=== PATIENT | female | born 1990 | race Caucasian/White ===

== ENCOUNTER 2020-03-13 10:00 | Inpatient (IN) | payer OTHER ==
[~2020-03-13 10:00] MED LIST: ELECTROLYTE-148 SOLN 1,000 ML IV ONE
[2020-03-13] MEDS ORDERED: CITRIC ACID/SODIUM CITRATE 30 ML UNIT-DOSE CUP PO ONE (11:18)
[2020-03-13 11:30] LABS: BASO % 0.6 % (0-2.0); HEMATOCRIT 33.2 % (32.4-45.2); HEMOGLOBIN 11.2 GM/dL (10.7-15.3); LYMPH % 14.7 % (8-40); MCH 30.9 pg (25.7-33.7); MCHC 33.7 g/dl (32.0-36.0); MEAN CELL VOLUME 91.9 fl (80-96); NEUT % 77.7 % (42.8-82.8); PLATELET COUNT 243 K/MM3 (134-434); RBC 3.61 M/mm3 (3.60-5.2); RDW 13.6 % (11.6-15.6)
[2020-03-13] MEDS ORDERED: ELECTROLYTE-148 SOLN 1,000 ML IV SCH (11:30)
[2020-03-13 11:32] VITALS: BMI 36.6
[2020-03-13 11:37] LABS: INR 0.94 (0.83-1.09); PROTHROMBIN TIME (PATIENT) 11.1 SEC (9.7-13.0)
[2020-03-13 11:40] LABS: ACTIVATED PTT 26.4 SECONDS (25.2-36.5)
[2020-03-13 12:04] LABS: BLOOD UREA NITROGEN 5.8 mg/dL (7-18); CALCIUM 9.1 mg/dL (8.5-10.1); CREATININE 0.5 mg/dL (0.55-1.3); POTASSIUM 3.8 mmol/L (3.5-5.1)
[2020-03-13] MEDS ORDERED: IBUPROFEN 800 MG/8 ML IJ IVPB PRN (13:02)
[2020-03-13] MEDS ORDERED: SENNOSIDES/DOCUSATE COMBO (SENNA PLUS) TABLET (UD) PO PRN (13:02)
[2020-03-13] MEDS ORDERED: IBUPROFEN 600 MG TABLET (FP) PO PRN ×2 (13:02→14:53)
--- NOTE | 2020-03-13 13:02 | HP ---
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: Alzheimer's, CVA, Dementia, Migraine, Multiple Sclerosis, Peripheral Neuropathy, Parkinson's, Seizure, Syncope, TIA, Vertigo, Other Cardiovascular: No: AFIB, Aneurysm, Aortic Insufficiency, Aortic Stenosis, CAD, CHF, Deep Vein Thrombosis, HTN, Hyperlipdemia, AK, Mitral Insufficiency, Mitral Stenosis, Murmur, Pulmonary Hypertension, Other Pulmonary: No: Asthma, Bronchitis, Cancer, COPD, O2 Dependent, Pneumonia, Previously Intubated, Pulmonary Embolus, Pulmonary Fibrosis, Sleep Apnea, Other Gastrointestinal: No: Ascites, Cancer, Constipation, Crohn's Disease, Diverticulitis, Diverticulosis, Esophageal Varices, Gastritis, GERD, GI Bleed, Hemorrhoids, Hiatal Hernia, Inflamatory Bowel Disease, Irritable Bowel Disease, Pancreatitis, Peptic Ulcer Disease, Ulcerative Colitis, Other Hepatobiliary: No: Cirrhosis, Cholelithiasis, Cholecystitis, Choledocholithiasis, Hepatitis A, Hepatitis B, Hepatitis C, Other Renal/: No: Renal Failure, Renal Inusuff, BPH, Cancer, Hematuria, Hemodialysis, Neurogenic Bladder, Renal Calculi, UTI, Other Reproductive: No: Ectopic , Endometriosis, Fibroids, PID, Polycystic Ovary Syndrome, Postmenopausal, Other ...: 6 ...Para: 3 ...Term: 3 ...: 0 ...Spon : 1 ...Induced : 1 ...Multiple Gestation: 0 ...LMP: 06/11/19 ... Weeks Gestation by Dates: 39.3 ...EDC by Dates: 03/17/20 ...EDC by Sono: 03/17/20 Heme/Onc: No: Anemia, B12 Deficiency, Bleeding Disorder, Cancer, Current Chemotherapy, Current Radiation Therapy, Hemochromatosis, Hypercoaguable State, Myeloproliferative Synd, Sickle Cell Disease, Sickle Cell Trait, Thrombocytopenia, Other Infectious Disease: No: AIDS, C-Diff, Herpes Zoster, HIV, MRSA, STD's, Tubercul osis, VREF, Other Psych: No: Addictions, Anxiety, Bipolar, Depression, Panic, Psychosis, Schizophrenia, Other Musculoskeletal: No: Bursitis, Chronic low back pain, Hemiparesis, Hemiplegia, Osteoarthritis, Paraplegia, Other Rheumatology: No: Fibromyalgia, Gout, Lupus, Rheumatoid Arthritis, Sarcoidosis, Vasculitis, Other ENT: No: Allergic Rhinitis, Sinusitis, Other Endocrine: No: Weippe's Disease, Juan Jose's Disease, Diabetes Insipidus, Diabetes Mellitus, Hyperparathyroidism, Hyperthyroidism, Hypothyroidism, Osteopenia, SIADH, Other Dermatology: No: Basal Cell, Cellulitis, Eczema, Melanoma, Psoriasis, Squamous Cell, Other - Past Surgical History Past Surgical History: Yes: (prior CD X 2) Hx Myomectomy: No Hx Transabdominal Cerclage: No - Smoking History Smoking history: Never smoked Have you smoked in the past 12 months: No Aproximately how many cigarettes per day: 0 - Alcohol/Substance Use Hx Alcohol Use: No History of Substance Use: reports: None - Social History Usual Living Arrangement: Yes: Alone History of Recent Travel: No Home Medications - Allergies Allergies/Adverse Reactions: Allergies Allergy/AdvReac Type Severity Reaction Status Date / Time No Known Allergies Allergy Verified 03/13/20 10:41 - Home Medications Home Medications: Ambulatory Orders Ferrous Sulfate [Feosol] 325 mg PO DAILY 09/11/13 Vitamins (Sjr) - 1 tab PO DAILY #0 10/09/13 Aspirin [ASA -] 81 mg PO DAILY 03/13/20 Family Medical History Family History: Unremarkable Review of Systems - Review of Systems Constitutional: reports: No Symptoms Eyes: reports: No Symptoms HENT: reports: No Symptoms Neck: reports: No Symptoms Cardiovascular: reports: No Symptoms Respiratory: reports: No Symptoms Gastrointestinal: reports: No Symptoms Genitourinary: reports: No Symptoms Breasts: reports: No Symptoms Reported Musculoskeletal: reports: No Symptoms Integumentary: reports: No Symptoms Neurological: reports: No Symptoms Endocrine: reports: No Symptoms Hematology/Lymphatic: reports: No Symptoms Psychiatric: reports: No Symptoms Physical Exam - Maternity Vital Signs: Vital Signs Temperature 97.9 F 03/13/20 11:00 Pulse Rate 86 03/13/20 11:00 Respiratory Rate 03/13/20 11:00 Blood Pressure 131/84 03/13/20 11:00 O2 Sat by Pulse Oximetry (%) Constitutional: Yes: Well Nourished HENT: Yes: Atraumatic Neck: Yes: Supple Cardiovascular: Yes: Regular Rate and Rhythm Breast(s): Yes: Other - Abdominal Exam/OB Number of Fetuses: Single Presentation: Vertex Contractions: Yes Regularity: Irregular Monitor Mode: External Heart Rate (range): 130 Category: I Accelerations: Uniform Decelerations: None - Vaginal Exam/OB Vaginal Bleeding: No Speculum Exam: No - Physical Exam Musculoskeletal: Yes: WNL Extremities: Yes: WNL Edema: No Edema: LLE: Trace Integumentary: Yes: WNL, Body Piercing Deep Tendon Reflex Grade: Normal +2 ...Motor Strength: WNL Psychiatric: Yes: Alert, Oriented - Labs Lab Results: CBC, BMP 03/13/20 11:15 03/13/20 11:15 Imaging - Results Ultrasound: Report Reviewed Problem List - Problems (1) section Code(s): Z98.89 - OTHER SPECIFIED POSTPROCEDURAL STATES * DO NOT USE * Assessment/Plan 29 y/o @ 39.3wks, no OB complaints, prior C/S x 2, desirng repeat CD and sterilization via bilateral salpingectomy, H/O PEC and blood transfusion. All questions answered and informed consent obtained -Proceed with surgery
--- NOTE | 2020-03-13 13:07 | OP ---
Operative Note - Note: Operative Date: 03/13/20 ([id number]) Pre-Operative Diagnosis: prior CS x 2 at term desiring sterilization Operation: Reeat section and bilateral salpingectomy Post-Operative Diagnosis: Same as Pre-op Surgeon: Joshua Mustafa Diesel Tractor Operator: Satish Mabry Anesthesia: Spinal Specimens Removed: bilateral fallopian tubes Estimated Blood Loss (mls): 900 Drains, Volume Out (mls): 400 (clear urine) Fluid Volume Replaced (mls): 1,900 Operative Report Dictated: Yes
[2020-03-13] MEDS ORDERED: OXYTOCIN 20 UNITS in 0.9% NS 40 UNIT/2,000 ML INFUS.BAG IV ONE (13:10)
[2020-03-13] MEDS: OXYTOCIN 20 UNITS in 0.9% NS 20 UNIT/1,000 ML INFUS.BAG IV SCH (14:35)
[2020-03-13] MEDS ORDERED: ONDANSETRON 4 MG/2 ML VIAL IVPUSH PRN (14:53)
--- NOTE | 2020-03-13 16:49 | OP ---
DATE OF OPERATION: 03/13/2020 PREOPERATIVE DIAGNOSIS: This is a 29-year-old 6, para 3-0-2-3 at 39.3 weeks of gestation, prior section x2 desiring sterilization. POSTOPERATIVE DIAGNOSIS: This is a 29-year-old 6, para 3-0-2-3 at 39.3 weeks of gestation, prior section x2 desiring sterilization. PROCEDURE: Repeat section and bilateral salpingectomy. ATTENDING: Elmer Garay MD SECURITY INTELLIGENCE ANALYST: ARDEN Nava ESTIMATED BLOOD LOSS: 700 mL. INTRAVENOUS FLUIDS: 1900 mL of crystalloid. URINE OUTPUT: 400 mL of clear urine. COMPLICATIONS: Adhesive disease. FINDINGS: Obese patient with a lower abdomen skin scar consistent with prior section, significant amount of subcutaneous adipose tissue. The tissue was fibrotic and adherent to the underlying rectus muscles. The rectus muscles were fused to each other in the midline. The anterior aspect of the lower uterine segment of the uterus and the bladder and posterior aspect of the rectus muscles were adherent to one another with thick adhesions. Transverse high incision on the uterus. Infant in cephalic presentation, LOT. Loose nuchal cord x1. A live, viable female. Bilateral tubes and ovaries consistent with normal anatomy. Rectus muscle fascial interface noted to be dry. There were areas of the adhesion and dissection area where dry. SPECIMEN: Bilateral fallopian tubes. IMPLANT: Surgicel placed at the vesicouterine adhesion area. DESCRIPTION OF PROCEDURE: The patient was taken to the operating room where anesthesia was found to be adequate. She was then prepped and draped in the normal sterile fashion. Urinary Keller catheter was placed atraumatically. Appropriate time-out took place. Pfannenstiel skin incision was made with a scalpel and carried to underlying fascia with the Bovie. The fascia was incised in the midline and incision extended laterally with sharp dissection. Findings as previously mentioned. The fascia was elevated with the Damari clamps, and the underlying rectus muscles were dissected off sharply. The rectus muscles were elevated with Allis clamps superiorly. Restricted exposure due to adhesions achieved. Sharp dissection carried out with the scalpel in the midline on the rectus muscles superiorly. Entry to the peritoneal cavity revealed thick adhesions inferior to the point of entry. No visceral adhesions noted superiorly. The incision was extended superiorly without difficulty. Careful dissection inferiorly involving the rectus muscles took place. Thick adhesions involving the lower uterine segment, the bladder, and part of the rectus muscle was noted. Sharp dissection of the rectus muscle and adhesive tissue in proximity to the lower uterine segment took place sharply. Following appropriate exposure for delivery of the infant, transverse high incision was made on the uterus, and the infant was delivered through the surgical incision with mild fundal pressure. Clear amniotic fluid and loose nuchal cord removed x1. Live, viable female. Cord was clamped and cut, and the was handed off to the NICU staff. Sample for blood was obtained. The placenta was delivered manually and intact. The uterus was exteriorized, and the intrauterine cavity was cleared of all clots and debris. The uterine incision was reapproximated with 1-0 Polysorb running, locked suture. Two layers were required to obliterate the defect. A couple of [id number] stitches of 2-0 chromic were placed in the midline to control mild oozing. Attention then was re-directed to the right fallopian tube where the tube was elevated with Babcocks and transected with the LigaSure instrument without difficulty. Surgical field was noted to be dry. Attention then was re-directed to the contralateral fallopian tube, which underwent the exact same procedure just described. Excellent hemostasis was noted. Secondary inspection of the uterine incision revealed excellent hemostasis. Uterus was internalized to the pelvic cavity, and gutter were cleared of all clot and debris. Excellent hemostasis was noted, and Surgicel was placed at the vesicouterine junction adhesion area. The right rectus muscle tissue was reapproximated with 2-0 chromic sutures. Excellent hemostasis was achieved. The rest of the muscles were reapproximated manually. Bladder dome rectus muscle fascial interface examined and noted to be atraumatic and dry. The fascial incision was reapproximated with 0 Polysorb running, nonlocked sutures. Excellent structural reapproximation achieved and confirmed by digital palpation by the surgeon. No defect was noted during palpation by the surgeon. Subcutaneous tissues were copiously irrigated, and the subcutaneous tissues were approximated with 2-0 chromic. Skin incision was reapproximated with surgical zoran. The patient tolerated the procedure well and is going to the recovery room in stable condition. Instrument count was reported as correct x2 by the staff. Preliminary review of surgical findings discussed with the patient. ELMER GARAY MD [id number] ALE
[2020-03-13] MEDS ORDERED: ceFAZolin 2 GRAM PREMIX BAG IVPB ONE (21:30)
[2020-03-13] MEDS ORDERED: METHYLERGONOVINE MALEATE 0.2 MG TABLET (FP) PO SCH (22:00)
[2020-03-13] MEDS ORDERED: METHYLERGONOVINE MALEATE 0.2 MG/1 ML AMP IM ONE (22:00)
[2020-03-14] MEDS: SIMETHICONE 80 MG TAB.CHEW (FP) PO PRN ×4 (02:15→20:08)
[2020-03-14] MEDS: METHYLERGONOVINE MALEATE 0.2 MG TABLET (FP) PO SCH ×5 (02:16→18:56)
[2020-03-14] MEDS: ACETAMINOPHEN 325 MG TABLET (FP) PO PRN ×5 (02:16→20:08)
[2020-03-14] MEDS: OXYTOCIN 20 UNITS in 0.9% NS 20 UNIT/1,000 ML INFUS.BAG IV SCH (05:56)
[2020-03-14 07:39] LABS: BASO % 0.5 % (0-2.0); EOS % 0.2 % (0-4.5); HEMATOCRIT 33.7 % (32.4-45.2); HEMOGLOBIN 11.1 GM/dL (10.7-15.3); LYMPH % 9.3 % (8-40); MCH 30.4 pg (25.7-33.7); MCHC 32.9 g/dl (32.0-36.0); MEAN CELL VOLUME 92.5 fl (80-96); MONO % 5.7 % (3.8-10.2); NEUT % 84.3 % (42.8-82.8); PLATELET COUNT 237 K/MM3 (134-434); RBC 3.64 M/mm3 (3.60-5.2); RDW 13.4 % (11.6-15.6)
--- NOTE | 2020-03-14 07:39 | PN ---
Post Progress Note - Subjective Subjective: Patient is out of bed, chavira removed, tolerating PO, lochia decreased, not yet passing flatus Type of Delivery: Repeat C/S Vital Signs: Vital Signs Temperature 98 F 03/14/20 05:00 Pulse Rate 89 03/14/20 05:00 Respiratory Rate 20 03/14/20 06:00 Blood Pressure 116/70 03/14/20 05:00 O2 Sat by Pulse Oximetry (%) 100 03/13/20 16:15 Breast Exam: Yes: Other Uterus: Yes: Fundus Firm Incision: Yes: Dressing dry and intact (removed), [place] intact Abdomen/GI: Yes: Abdomen soft Lochia, amount: Moderate Extremities: Yes: Calves non-tender (SCD on) Perineum: Yes: Intact Activity: Ambulating - Labs Labs: CBC WBC 9.0 K/mm3 (4.0-10.0) 03/13/20 11:15 RBC 3.61 M/mm3 (3.60-5.2) 03/13/20 11:15 Hgb 11.2 GM/dL (10.7-15.3) 03/13/20 11:15 Hct 33.2 % (32.4-45.2) D 03/13/20 11:15 MCV 91.9 fl (80-96) 03/13/20 11:15 MCH 30.9 pg (25.7-33.7) 03/13/20 11:15 MCHC 33.7 g/dl (32.0-36.0) 03/13/20 11:15 RDW 13.6 % (11.6-15.6) 03/13/20 11:15 Plt Count 243 K/MM3 (134-434) 03/13/20 11:15 MPV 10.0 fl (7.5-11.1) 03/13/20 11:15 Absolute Neuts (auto) 7.0 K/mm3 (1.5-8.0) 03/13/20 11:15 Neutrophils % 77.7 % (42.8-82.8) 03/13/20 11:15 Lymphocytes % 14.7 % (8-40) 03/13/20 11:15 Monocytes % 6.0 % (3.8-10.2) 03/13/20 11:15 Eosinophils % 1.0 % (0-4.5) 03/13/20 11:15 Basophils % 0.6 % (0-2.0) 03/13/20 11:15 Nucleated RBC % 0 % (0-0) 03/13/20 11:15 Problem List - Problems (1) section Code(s): Z98.89 - OTHER SPECIFIED POSTPROCEDURAL STATES * DO NOT USE * Assessment/Plan POD # 1 S/P repeat CS and sterilization, surgery complicated by adhesive disease in stable condition. -Continue post-op and PP care -F/U covid results -Anticipate D/C home on POD # 2 vs 3
[2020-03-14] MEDS: oxyCODONE HCL 5 MG TABLET PO PRN ×3 (09:43→20:08)
[2020-03-14] MEDS ORDERED: FLU VACCINE QUAD 60 MCG/0.5 ML (MDV 19-20) IM ONE (10:00)
[2020-03-14] MEDS ORDERED: DIPHTH,PERTUSS(ACELL),TET 0.5 ML DISP.SYRIN IM ONE (10:00)
[2020-03-14] MEDS ORDERED: FLU VACC QS2019-20(6MOS UP)/PF 60 MCG/0.5 ML SYRINGE IM ONE (10:00)
[2020-03-14] MEDS ORDERED: BISACODYL 10 MG SUPP.RECT RC PRN (13:03)
--- NOTE | 2020-03-14 13:25 | PN ---
Progress Note (short form) - Note Progress Note: Anesthesia POD#1 S/P under spinal A and Duramorph VSS, no N/V,no itch, legs fully recovered. Pain is bearable. Cherri Botello MD.
[2020-03-15] MEDS: SIMETHICONE 80 MG TAB.CHEW (FP) PO PRN (06:13)
[2020-03-15] MEDS: ACETAMINOPHEN 325 MG TABLET (FP) PO PRN (06:13)
[2020-03-15] MEDS: oxyCODONE HCL 5 MG TABLET PO PRN (06:13)
[2020-03-15 09:08] VITALS: BP 106/76; PULSE 84; TEMP 97.6
--- NOTE | 2020-03-15 10:22 | DS ---
Physical Exam-AREA CAPTAIN Vital Signs: Vital Signs Temperature 97.6 F 03/15/20 09:00 Pulse Rate 84 03/15/20 09:00 Respiratory Rate 18 03/15/20 09:00 Blood Pressure 106/76 03/15/20 09:00 O2 Sat by Pulse Oximetry (%) 100 03/13/20 16:15 Constitutional: Yes: Well Nourished, Other (pain score 5/10) Eyes: Yes: WNL HENT: Yes: WNL Neck: Yes: WNL Cardiovascular: Yes: WNL Respiratory: Yes: WNL Gastrointestinal: Yes: WNL, Normal Bowel Sounds, Soft, Distention (mild), Other (bm done yesterday. passing flatus, gaseous discomfort less today) ....Post : Yes: Uterus firm, Moderate lochia rubra Breast(s): Yes: WNL (soft, attempting Bf, Bottle feeding also) Musculoskeletal: Yes: WNL Extremities: Yes: WNL. No: Calf Tenderness Edema: Yes Edema: LLE: 1+, RLE: 1+ Wound/Incision: Yes: Clean/Dry, Well Approximated, [place] Intact, Open to air. No: Draining, Reddened, Bleeding, Excoriated Neurological: Yes: WNL ...Motor Strength: WNL Psychiatric: Yes: WNL, Alert, Oriented Labs: CBC, BMP 03/14/20 07:17 03/13/20 11:15 Delivery - Delivery Type of Anesthesia: Spinal Episiotomy/Laceration: None EBL (cc): 900 Delivery, Single - Stages of Labor Date of Delivery: 03/13/20 Time of Delivery: 13:58 Time Placenta Delivered: 13:59 - Condition of Supervisor Byproducts/Dewaterer Operator Present: Yes Name: Liz Bagley Infant Gender: Female Weight: 9 lb 6 oz Position: Left, OT Total Hours ROM (Hrs/Mins): 0/2 - 1 Minute Total Score: 9 5 Minutes Total Score: 9 - [place] Feeding Plan Initial Plan: Elected not to breastfeed exclusively throughout hospitalization Remarks - Remarks Remarks: post op course uneventful except gaseous discomfort on po day #1 pt feels better , she requests for discharge today po instructions given, she will go to clinic in 1 week for zoran removal Discharge today Discharge Summary Problems reviewed: Yes Reason For Visit: REPEAT C SECTION + BTL Condition: Fair - Instructions Diet, Activity, Other Instructions: Please return to regular diet as tolerated. Avoid strenuous activity until cleared by your physician. Call MD with any questions or concerns. Follow up within 1 week from hospital discharge for incision check RTC 1 week for [place] removal keep wound dry Referrals: Tangela Harris CNM [Certified Nurse Hospice Social Worker] - Tawanna Maddox MD [Staff Physician] - Joshua Mustafa MD [Staff Physician] - Disposition: HOME - Home Medications Comprehensive Discharge Medication List: Ambulatory Orders Ferrous Sulfate [Feosol] 325 mg PO DAILY 09/11/13 Vitamins (Sjr) - 1 tab PO DAILY #0 10/09/13 Acetaminophen [Tylenol] 650 mg PO Q6H PRN #30 capsule MDD 5 03/13/20 Aspirin [ASA -] 81 mg PO DAILY 03/13/20 Ibuprofen 600 mg PO Q6H PRN #30 tablet 03/13/20 Oxycodone HCl 5 mg PO Q6H PRN 3 Days #12 tablet MDD 5 03/13/20 Miscellaneous Medical Supply [Breast Pump, Electronic] 1 each NR ASDIR #1 unit 03/14/20
--- NOTE | 2020-03-15 15:56 | PATH ---
Surgical Pathology Report Patient Name: KELLIE CALDERA Med. Rec. 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 PLACENTA, SECTION: 812 G THIRD TRIMESTER PLACENTA WITH TRIVASCULAR UMBILICAL CORD AND UNREMARKABLE PLACENTAL MEMBRANES. B. FALLOPIAN TUBE, RIGHT, SALPINGECTOMY: FALLOPIAN TUBE WITH WALTHARD NEST CYSTS (INCLUDING FIMBRIATED END AND FULL LUMINAL PORTION). C. FALLOPIAN TUBE, LEFT, SALPINGECTOMY: FALLOPIAN TUBE WITH PARATUBAL AND WALTHARD NEST CYSTS (INCLUDING FIMBRIATED END AND FULL LUMINAL PORTION). Electronically Signed Dory Tapia M.D. Gross Description A. The specimen is received fresh labeled placenta and is an 812 gram, 22.0 x 21.0 x 2.5 cm. placenta with attached membranes and umbilical cord. The attached membranes are finney, translucent with focal opacities and insert marginally. The umbilical cord measures 44 cm. in length and averages 1.1 cm. in diameter. The cord inserts eccentrically, 7 cm. to the nearest margin. No true knots or strictures are identified. Cut surface of the umbilical cord reveals 3 vessels. The surface is sumner-blue with minimal fibrin deposition and appropriate caliber vessels. The maternal surface is red-brown with focal defects. Sectioning reveals red-brown, spongy parenchyma. No lesions are identified. Insurance Application Investigator sections are submitted in three cassettes as follows: 1- membrane rolls and umbilical cord; 2-3- full thickness sections of placenta. B. Received in formalin labeled "right fallopian tube," is a 4.5 cm in length fimbriated fallopian tube. The outer surface is kelley purple and smooth. Sectioning reveals an unremarkable lumen. Insurance Application Investigator sections are submitted in 2 cassettes as follows: 1-fimbria; 2-cross sections of fallopian tube. C. Received in formalin labeled "left fallopian tube," is a 5 cm in length fimbriated fallopian tube. The outer surface is kelley purple and smooth. Sectioning reveals an unremarkable lumen. Insurance Application Investigator sections are submitted in 2 cassettes as follows: 1-fimbria; 2-cross sections of fallopian tube. 03/14/2020 [facility]03/14/2020
== END 2020-03-15 12:33 | disposition home or self-care (01) | DRG 540 ==
LOC: JLDR 10:00 → J3W 17:33
PROVIDERS: ADMIT Student in an Organized Health Care Education/Training Program; ATTEND Student in an Organized Health Care Education/Training Program
PROC: 10D00Z1 Extraction of Products of Conception, Low, Open Approach (ICD-10-PCS; principal; 2020-03-13)
PROC: 0UT70ZZ Resection of Bilateral Fallopian Tubes, Open Approach (ICD-10-PCS; 2020-03-13)
DX: O82 Encounter for cesarean delivery without indication (principal); Z3A.39 39 weeks gestation of pregnancy; Z37.0 Single live birth; Z30.2 Encounter for sterilization
CPT/HCPCS: 36415; 80048; 85025; 85610; 85730; 86780; 86850; 86900; 86901; 88302-TC; 88307-TC; 90686; 90715; G0008; U0003